=== PATIENT | female | born 2000 | race Two or more races ===

== ENCOUNTER 2023-09-26 05:30 | Emergency (ER) | payer SELFPAY ==
[2023-09-26] MEDS ORDERED: Morphine 4 MG/ML VIAL ONE (05:57)
[2023-09-26] MEDS ORDERED: Ondansetron PF 4 MG/2 ML Vial ONE (05:57)
[2023-09-26 06:16] LABS: #Basophils 0.02 10x3/uL (0.0-0.2); #Monocytes 0.11 10x3/uL (0.0-1.1); #Neutrophils 7.18 10x3/uL (1.5-8.4); %Basophils 0.3 % (0.0-2.0); %Lymphocytes 7.9 % (18.0-47.0); %Monocytes 1.4 % (0.0-10.0); Hematocrit 38.3 % (34.9-44.5); Hemoglobin 13.8 g/dL (12.0-15.5); Mean Corpuscular Hemoglobin 31.2 pg (27.0-33.0); Mean Corpuscular Volume 86.5 fl (81.6-98.3); Mean Platelet Volume 9.6 fl (7.4-10.4); Platelet Count 292 10x3/uL (150-450); RBC Distribution Width 12.5 % (11.5-14.5); Red Blood Cell (RBC) Count 4.43 10x6/uL (3.90-5.03)
[2023-09-26 06:21] LABS: BHCG - Serum Negative (NEGATIVE); Pregs Control Background? CLEAR/WHITE (CLR/WHITE); Pregs Control Bar Appear? YES (CONTROL BAR)
[2023-09-26 06:33] LABS: ALT (SGPT) 15 U/L (8-55); AST (SGOT) 19 U/L (5-34); Albumin 4.7 g/dL (3.5-5.0); Alkaline Phosphatase 65 U/L (40-110); Anion Gap 24 mmol/L (10-20); BUN (Urea Nitrogen) 11 mg/dL (7.0-18.7); Bilirubin, Total 1.6 mg/dL (0.2-1.2); Calc. Creatinine Clearance 0 mL/min (70-130); Calcium 9.8 mg/dL (7.8-10.44); Chloride 109 mmol/L (98-107); Estimated GFR 120; Globulin 2.7 g/dL (2.4-3.5); Glucose 128 mg/dL (70-105); Lipase 43 U/L (8-78); Magnesium 1.8 mg/dL (1.6-2.6); Potassium 3.7 mmol/L (3.5-5.1); Protein, Total 7.4 g/dL (6.0-8.3); Sodium 137 mmol/L (136-145)
[2023-09-26 06:38] LABS: Carbon Dioxide 8 mmol/L (22-29); Critical Call Chemistry NUR.AEB@0635
[2023-09-26 06:54] LABS: Bilirubin Neg (Negative); Blood, Urine 25 (Negative); Clarity Slightly Cloudy (Clear); Glucose, Urine (Dipstick) Normal (Negative); Ketone, Urine 150 mg/dL (Negative); Leukocyte Negative (Negative); Nitrite Negative (Negative); Protein, Urine (Dipstick) 30 mg/dl (Neg-Trace); Urobilinogen Normal mg/dL (Less than 2)
[2023-09-26 07:01] LABS: CAUTI Indications for Culture Pelvic or flank pain; RBC/HPF 0-3 HPF (0-3)
[2023-09-26 07:02] LABS: Bacteria/HPF Rare-Few HPF (None Seen); Calcium Oxalate Crystals Rare HPF (None Seen)
[2023-09-26 07:03] LABS: Urine Culture Reflex No No
[2023-09-26 07:03] LABS: Actual Bicarbonate (HCO3v) 12.4 mEq/L (22-28); Analyzer IN Cardio CS ER; Base Excess -10.2 mEq/L (-2 - +2); Calcium, Ionized (venous) 1.14 mmol/L (1.16-1.32); Chloride (VBG) 106 mmol/L (98-106); Hematocrit-VBG 38 % (36.0-47.0); Potassium (VBG) 3.42 mmol/L (3.70-5.30); Puncture Site Other Site; RapidComm Collect By lab tech; Sodium 138 mmol/L (133-146); pH (venous) 7.397 (7.32-7.43)
[2023-09-26] MEDS ORDERED: Dicyclomine 20 MG/2 ML VIAL ONE (07:26)
[2023-09-26] MEDS ORDERED: Ketorolac Tromethamine 30 MG (1 mL) VIAL ONE (09:29)
== END 2023-09-26 09:37 | disposition home or self-care (01) ==
LOC: CSHERS 05:30
DX: R11.2 Nausea with vomiting, unspecified (principal)
CPT/HCPCS: 80053; 81001; 82010; 82805; 83690; 83735; 84703; 85025; 96361; 96372; 96374; 96375; J1885; J2270; J2405

== ENCOUNTER 2023-09-27 12:45 | Emergency (ER) | payer SELFPAY ==
[2023-09-27] MEDS ORDERED: Ondansetron PF 4 MG/2 ML Vial ONE ×2 (13:26→17:54)
[2023-09-27] MEDS ORDERED: Pantoprazole 40 MG VIAL ONE (14:36)
[2023-09-27] MEDS ORDERED: Lorazepam 2 MG/ML VIAL ONE (14:36)
[2023-09-27 15:16] LABS: #Basophils 0.05 10x3/uL (0.0-0.2); #Eosinphils 0.01 10x3/uL (0.0-0.5); #Monocytes 0.49 10x3/uL (0.0-1.1); #Neutrophils 14.86 10x3/uL (1.5-8.4); %Basophils 0.3 % (0.0-2.0); %Eosinophils 0.1 % (0.0-6.0); %Lymphocytes 6.4 % (18.0-47.0); %Neutrophils 89.8 % (40.0-75.0); Hematocrit 36.6 % (34.9-44.5); Hemoglobin 12.9 g/dL (12.0-15.5); Mean Corpuscular HGB CONC 35.2 g/dL (32.0-36.0); Mean Corpuscular Hemoglobin 30.9 pg (27.0-33.0); Mean Corpuscular Volume 87.6 fl (81.6-98.3); Mean Platelet Volume 9.7 fl (7.4-10.4); Platelet Count 279 10x3/uL (150-450); RBC Distribution Width 12.6 % (11.5-14.5); Red Blood Cell (RBC) Count 4.18 10x6/uL (3.90-5.03); White Blood Cell (WBC) Count 16.5 10x3/uL (3.5-10.5)
[2023-09-27 15:31] LABS: ALT (SGPT) 13 U/L (8-55); AST (SGOT) 16 U/L (5-34); Albumin 4.1 g/dL (3.5-5.0); Alkaline Phosphatase 53 U/L (40-110); Anion Gap 19 mmol/L (10-20); BUN (Urea Nitrogen) 11 mg/dL (7.0-18.7); Bilirubin, Total 0.9 mg/dL (0.2-1.2); Calc. Creatinine Clearance 0 mL/min (70-130); Calcium 8.4 mg/dL (7.8-10.44); Carbon Dioxide 12 mmol/L (22-29); Chloride 109 mmol/L (98-107); Estimated GFR 124; Globulin 2.3 g/dL (2.4-3.5); Glucose 81 mg/dL (70-105); Lipase 72 U/L (8-78); Magnesium 1.6 mg/dL (1.6-2.6); Potassium 2.7 mmol/L (3.5-5.1); Protein, Total 6.4 g/dL (6.0-8.3); Sodium 137 mmol/L (136-145)
[2023-09-27 15:40] LABS: BHCG - Serum Negative (NEGATIVE); Pregs Control Background? CLEAR/WHITE (CLR/WHITE); Pregs Control Bar Appear? YES (CONTROL BAR)
[2023-09-27] MEDS ORDERED: Potassium Chloride 20 MEQ TAB ONE ×2 (15:54→16:03)
[2023-09-27] MEDS ORDERED: NS 0.9% w/ 20 MEQ KCL 1,000 ML ONE (15:55)
[2023-09-27] MEDS ORDERED: Ondansetron ODT 4 MG TAB ONE (17:53)
[2023-09-27] MEDS ORDERED: Lorazepam 1 MG TAB ONE (18:04)
[2023-09-27] MEDS ORDERED: Ketorolac Tromethamine 30 MG (1 mL) VIAL ONE (19:41)
== END 2023-09-27 20:53 | disposition home or self-care (01) ==
LOC: CSHERS 12:45
DX: R11.2 Nausea with vomiting, unspecified (principal); F12.90 Cannabis use, unspecified, uncomplicated
CPT/HCPCS: 36415; 80053; 83690; 83735; 84703; 85025; 93005; 96361; 96374; 96375; 96376; C9113; J1885; J2060; J2405; J3480; Q0162